=== PATIENT | male | born 1985 ===

== ENCOUNTER 2019-03-01 22:56 | Emergency (ER) | payer OTHER, SELFPAY ==
[2019-03-01 23:00] VITALS: BP 156/96; PULSE 97; RESP 20; TEMP 36.7; O2SAT 96; BMI 24.3
--- NOTE | 2019-03-01 23:20 | ED_ITS ---
HPI - Skin/Abscess/Foreign Bdy General Chief complaint: Skin/Abscess/Foreign Body Stated complaint: thinks a side effect to a medication Time Seen by Provider: 03/01/19 23:11 Source: patient Mode of arrival: ambulatory Limitations: no limitations History of Present Illness HPI narrative: Patient is a 33-year-old male here for evaluation of what he thinks is a reaction to the medication he is taking. He states that several weeks ago he started taking Lamictal. This is provided by his mental health provider. He states that he has been increasing the dose of this over the past several weeks. He states that on Saturday of last week he started noticed some redness on his penis. He states that since then this has worsened. He states that he has had some problems with urinating since then because the urethral opening has been ?closing off? he states that he is able to urinate after he ?opens it ?he also has a spot on his upper lip that started about the same time. He stated he stopped taking the Lamictal on of last week. Upon further questioning he stated that at the end of last year he had very similar symptoms happened after he started Lamictal. He stated that he stop taking it at that time because he ran out of the medication. He states that the rash that he had in his genitals at that time resolved after about 3 weeks. He states that the rash this time is worse than the prior episodes. No fevers. No history of sexually transmitted diseases. He is not concerned about sexually transmitted diseases. Has been using Vaseline over his lesions on his penis. Related Data Previous Rx's Medication Instructions Recorded ciprofloxacin HCl [Cipro] 500 mg PO BID #14 tab 09/07/17 hydrocodone-acetaminophen [[place]] 1 tab PO Q6HP PRN #8 tab 09/07/17 sulfamethoxazole-trimethoprim 1 tab PO BID #10 tab 09/07/17 Allergies Allergy/AdvReac Type Severity Reaction Status Date / Time morphine Allergy Severe SOB, Verified 03/01/19 23:12 ITCHING acetaminophen [From Vicodin] Allergy Mild MAKES HIM Verified 03/01/19 23:12 ITCH hydrocodone [From Vicodin] Allergy Mild MAKES HIM Verified 03/01/19 23:12 ITCH codeine Allergy Verified 03/01/19 23:13 oxycodone [From Percocet] Allergy Verified 03/01/19 23:13 Review of Systems Constitutional Denies fatigue and Denies fever(s) Eyes Denies itchy eyes ENT Ears, Nose, Mouth, and Throat: Denies lip swelling and Denies throat swelling Cardiovascular Denies chest pain and Denies dyspnea Respiratory Denies dyspnea Gastrointestinal Gastrointestinal: Denies abdominal pain Genitourinary Comments: Rash around his penis Musculoskeletal Denies back pain and Denies arthralgias Integumentary/Breasts Comments: Rash and ulcerations on his penis and upper lip Neurologic Denies behavioral changes Psychiatric Denies behavioral changes Endocrine Denies fatigue Hematologic/Lymphatic Denies easy bleeding and Denies easy bruising Allergic/Immunologic Denies urticaria, Denies itchy eyes, Denies lip swelling and Denies throat swelling [facility] Medical History Depression (Acute) Social History Smoking Status: Former smoker Social History Smoking Status: Former smoker Exam Initial Vital Signs Initial Vital Signs: Vital Signs Temperature 98.1 F 03/01/19 23:00 Pulse Rate 97 H 03/01/19 23:00 Respiratory Rate 20 03/01/19 23:00 Blood Pressure 156/96 H 03/01/19 23:00 Pulse Oximetry 96 03/01/19 23:00 Const General: cooperative, well developed, well groomed and No acute distress Orientation: alert, awake and oriented x3 HENMT Head: normal to inspection and normocephalic Resp Effort & Inspection: normal respiratory effort Auscultation: clear to auscultation bilaterally Cardio Rate: regular rate Rhythm: regular rhythm GI Inspection: non-distended Palpation: soft External: circumcised Scrotum: scrotum normal Testes: normal Skin Other: Patient with a 1 cm area of crusting on the right side of his upper lip. No surrounding erythema. No vesicles apparent. Patient with significant excoriation and ulceration to his penis. Minimal involvement of the scrotum. Does have brawl skin tissue around the glans of the penis. There are no vesicles apparent. There is no signs of an infection. Did seem to be tender to palpation. no drainage. no crusting. Neuro General: alert, awake and oriented x3 Extrem General: normal to inspection and capillary refill normal Psych Appearance: grossly normal and well kempt Course Vital Signs - 8 hr 03/01/19 23:00 03/02/19 00:34 Temperature 98.1 F 98.2 F Pulse Rate 97 H 77 Respiratory Rate 20 16 Blood Pressure 156/96 H 146/91 H Pulse Oximetry 96 98 MDM - Skin/Abscess/Foreign Bdy MDM Narrative Medical decision making narrative: Patient is otherwise healthy however has fairly significant ulcerations and excoriations sores to his penis. He also has a small area on his upper lip. There seems to be no other mucous membrane involvement. It appears that the same symptoms happened at the end of last year when he took the Lamictal and improved after he stopped the Lamictal. I suspect that this is a reaction to Lamictal. He has not been on it for the past couple days and I instructed him to stop taking it and contact his mental health provider regarding this. There is no signs of a superinfection over the area. The rash is not consistent with herpes or syphilis or chancroid. 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 He is still able to urinate. We did discuss a Humphrey catheter however since he is able to urinate I feel that the risks of infections outweigh the benefits currently. Referral was placed for wound care. Patient was given follow-up numbers with regard to Urology. He is also instructed to contact his primary care provider over the [place] for follow-up. He was given strict return precautions. No indication for antibiotics currently. The patient expressed understanding and agreement this plan. Discharge Plan Departure Patient Disposition: Home Clinical Impression: Rash Medication reaction Qualifiers: Encounter type: initial encounter Qualified Code(s): T50.905A - Adverse effect of unspecified drugs, medicaments and biological substances, initial encounter Discharge Date/Time: 03/02/19 00:34 Interventions: ED Discharge Assessment Last Done: 03/02/19 00:34 Instructions: DI for Rash, Skin Wound Activity Restrictions/Additional Instructions: I recommend that you stop taking the Lamictal. It is also important that if he finds the ulcerations are worsening or if you find ulcerations and other areas including your mouth or if your pain is worsening or he develop any fevers or problems urinating that you return to the emergency department. Please contact the wound Care Clinic at Located within [facility] at [phone] for follow-up. I also [facility] He can also contact the [facility] Urology Department at [phone]. I would also contact your mental health provider. Prescriptions: No Action hydrocodone-acetaminophen [[place]] 5 MG/325 MG tablet 1 tab PO Q6HP PRNQty: 8 RF: 0 ciprofloxacin HCl [Cipro] 500 MG tablet 500 mg PO BID Qty: 14 RF: 0 sulfamethoxazole-trimethoprim 800 MG/160 MG tablet 1 tab PO BID Qty: 10 RF: 0 Stand Alone Forms: School Release Note
[2019-03-02 00:34] VITALS: BP 146/91; PULSE 77; RESP 16; TEMP 36.8; O2SAT 98
== END 2019-03-02 00:34 | disposition home or self-care (01) ==
PROVIDERS: Emergency Provider Emergency Medicine
DX: T50.905A Adverse effect of unspecified drugs, medicaments and biological substances, initial encounter (principal); R21 Rash and other nonspecific skin eruption
CPT/HCPCS: 99282

== ENCOUNTER 2023-04-22 10:28 | Day surgery (SDC) | payer OTHER, SELFPAY ==
[2023-04-22 10:46] VITALS: BP 142/89; PULSE 86; RESP 16; TEMP 36.6; O2SAT 100; BMI 24.5
[2023-04-22] MEDS: LACTATED RINGERS 1,000 ML 21 ML IV (10:56)
--- NOTE | 2023-04-22 11:33 | PM.PREOP ---
Pre-operative Note COVID-19 Criteria for continued procedure: Expected advancement of disease process, Continuing or worsening of significant or severe pain, Deterioration of the patient's condition or overall health, Delay expected to result in less-positive ultimate med/surg outcome and Non-surgical alternatives not available or appropriate per current SOC Interval Note History & Physical reviewed/Exam performed by Physician: Yes Changes to H&P: No
[2023-04-22] MEDS: CEFAZOLIN 2 GM/100 ML PREMIX 100 ML IV (12:13)
--- NOTE | 2023-04-22 12:16 | SUR.OPER ---
Supine on padded OR bed, head on pillow, arms secured on padded arm boards at <90 degrees abduction, legs uncrossed, safety belt at thigh, tape over blanket over lower legs.
[2023-04-22] MEDS: BUPIVACAINE LIPOSOME 266 MG/20 ML VIAL INJ (12:20)
[2023-04-22] MEDS: BACITRACIN OINT 0.9 GM PCKT 1 APPLIC TOP (12:21)
[2023-04-22 12:50] VITALS: BP 113/69; PULSE 69; RESP 20; TEMP 36.5; O2SAT 100
--- NOTE | 2023-04-22 12:53 | SUR.PHASEI ---
Received to PACU after MAC. Oral airway in place. No further airway assistance required. Report from Nayely Jones RN and SHRADDHA Nunez.
[2023-04-22 12:55] VITALS: BP 119/73; PULSE 72; RESP 12; O2SAT 100
[2023-04-22 13:05] VITALS: BP 121/85; BP 122/77; PULSE 71; PULSE 72; RESP 10; RESP 14; TEMP 36.2; O2SAT 98; O2SAT 99
--- NOTE | 2023-04-22 13:08 | PM.OP.1 ---
Operative Date/Time/Diagnoses Date of procedure: 04/22/23 Time of procedure: 12:45 Pre-op diagnosis: Right sperm granuloma. Post-op diagnosis: other (Proximity of vas stump superficially to skin) Procedure & Clinicians Procedure: 1. Right scrotal exploration and repositioning of vasectomy interruption stumps. Same procedure as scheduled: No (No granuloma found.) Indications: 1. Painful right scrotal contents status post vasectomy. Surgeon: Suzy Vora Click Yes if Unassisted: Yes Anesthesia Type: General Operative Notes Findings: The vas stumps were in close proximity and attached just beneath the surface of the skin to the right of the original vas incision. No granuloma was identified. Closure Type: primary Specimen(s): none sent Estimated Blood Loss (mL): 1 Procedure in detail: The patient was positioned supine was administered general anesthesia. The lower abdomen, genitalia, and groin were then prepped and draped in sterile fashion. 1.33% Exparel was then used to infiltrate midline scrotal raphae and subcutaneous tissue. A 1-1.5 cm midline incision was then made with a pinpoint cautery tip Bovie. Combination of blunt and cautery dissection were then utilized to identify, isolate, and mobilize the site of vasectomy. Appropriate plane was obtain circumferentially around the vas stumps and careful dissection was extended proximally with the proximal stump side and distally on the distal stump side. The ends were then repositioned in a deeper and more posterior location within the right hemiscrotum. The subcutaneous layer was then closed at 2 levels with [id number] 2-0 chromic. The skin was reapproximated with a running horizontal mattress of 4-0 Monocryl. Skin surface was then cleaned and dried. Antibiotic ointment was applied to the incision. Fluffs were applied to the scrotum athletic supporter was fitted to the patient. The patient was then awakened, transferred to [facility], and then transported recovery in stable condition. Complications: none Post-operative Condition: stable Disposition: PACU Plan for aftercare: Discharge home.
== END 2023-04-22 13:23 | disposition home or self-care (01) ==
PROVIDERS: PCP Family Medicine; Referring Provider Specialist; Visit Provider Specialist
PROC: (CPT 55110; principal; 2023-04-22 11:45)
DX: N50.89 Other specified disorders of the male genital organs (principal); N50.82 Scrotal pain
CPT/HCPCS: 55110; C9290; J0690; J2250; J2704; J3010

== ENCOUNTER 2023-04-26 11:33 | Emergency (ER) | payer OTHER, SELFPAY ==
[2023-04-26 11:37] VITALS: BP 143/90; PULSE 89; RESP 18; TEMP 36.7; O2SAT 98; BMI 24.5
[2023-04-26 13:32] VITALS: BP 144/90; PULSE 77; RESP 18; O2SAT 97
--- NOTE | 2023-04-26 13:41 | ED.WOUNDLAC ---
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 Patient states he had a vasectomy at the beginning of the month and then developed patient had concern for granuloma but was found to have proximity of the vas deferens stump superficially to the skin. Patient states this was on 04/22/2023, since then he would noticed some blackish discoloration of the incision he states sutures were supposed to be absorbable and he was supposed to follow up in 2-3 weeks. He has not had fevers he is had pain at the site, testicular pain. He states pain has been present persisting since the surgery but not significantly worsened maybe a little bit improved. He is not appreciate a lot of new swelling, redness or other skin changes. He did snip 1 of the sutures himself. Patient states no issues with urination, no dysuria, urgency or frequency. No new abdominal back or flank pain. He states he is chronic back pain but no new changes. Patient has a attempted to reach Dr. Vora his urologist yesterday and today without any success. He does note he has been less active in the last week since his surgery. Patient knows multiple medication allergies. Tobacco, occasional alcohol, uses marijuana but no other illicit. Related Data Home Medications Medication Instructions Recorded Confirmed cholecalciferol (vitamin D3) 25 2,000 unit PO DAILY 10/24/21 04/22/23 mcg (1,000 unit) tablet montelukast 10 mg tablet 10 mg PO DAILY 10/24/21 04/22/23 gabapentin 300 mg capsule 300 mg PO TID 03/05/23 04/22/23 Previous Rx's Medication Instructions Recorded fluticasone propionate 50 1 spray intranasal DAILY #16 grams 10/24/21 mcg/actuation nasal spray,suspension rizatriptan 10 mg disintegrating 10 mg PO ONCE PRN migraine 03/21/22 tablet (Maxalt-COREMAKING MACHINE OPERATOR) headache #20 tabs methocarbamol 500 mg tablet 500 mg PO TID #30 tabs 12/12/22 bupropion HCl 300 mg 24 hr tablet, 300 mg PO QAM #90 tabs 01/09/23 extended release dextroamphetamine-amphetamine ER 30 mg PO DAILY #30 caps 04/05/23 30 mg 24hr capsule,extend release tramadol 50 mg tablet 50 mg PO Q4H PRN pain #20 tabs 04/22/23 doxycycline hyclate 100 mg tablet 100 mg PO BID #20 tabs 04/26/23 Allergies Allergy/AdvReac Type Severity Reaction Status Date / Time hazelnut Allergy Severe Throat Verified 04/22/23 12:42 swelling lamotrigine [From Lamictal] Allergy Severe SJS Verified 04/22/23 12:42 morphine Allergy Severe SOB, Verified 04/22/23 12:42 ITCHING hydrocodone [From Vicodin] Allergy Mild MAKES HIM Verified 04/22/23 12:42 ITCH lithium Allergy Mild Itching Verified 04/22/23 12:42 acetaminophen Allergy Rash Verified 04/26/23 11:42 aspirin Allergy Rash Verified 04/22/23 12:42 codeine Allergy Verified 04/22/23 12:42 ibuprofen Allergy Rash Verified 04/22/23 12:42 naproxen Allergy Rash Verified 04/22/23 12:42 oxycodone [From Percocet] Allergy Verified 04/22/23 12:42 Review of Systems Review of Systems ROS Unobtainable: All systems reviewed & are unremarkable except as noted in HPI and below Patient History Medical History ADD (attention deficit disorder) (~1993) Allergies (~1984) Arthritis Asthma (~2006) Chicken pox (~1987) Chronic back pain (~2006) Depression Depression (~2005) Eczema (~2007) Encounter for sterilization Fractures (~1996) Hearing loss Hypertension (~2006) Migraine headache (~2014) Psoriasis (~1986) PTSD (post-traumatic stress disorder) (~2005) Recurrent sinusitis Shoulder pain (~2003) Sperm granuloma Sterilization consult Tinnitus Surgical History Anesthesia H/O vasectomy (04/04/23) History of foot surgery (~2008) History of tonsillectomy and adenoidectomy (~1994) Family History Father Renal cancer Mental health problem History of heart disease Cancer Mother Diabetes mellitus Mental health problem Neuropathy Sister Ovarian cancer Mental health problem Migraine Cancer Grandfather Diabetes mellitus History of heart disease Cancer Grandmother Diabetes mellitus Neuropathy Grandfather Cancer Grandmother Dementia Eczema Social History marital status: number of children: 0 household members: spouse Smoking Status: Never smoker Tobacco: How many years used: 5 alcohol intake: current substance use type: marijuana (2g per week for sleep ) Type(s) of exercise: walking frequency: 3-4 times per week Smoking Status: Never smoker alcohol intake frequency: holidays/special occasions only Substance Use Type: marijuana Exam Narrative Exam Narrative: GENERAL: Alert and oriented x three, male in mild distress. HEENT: Head normocephalic, atraumatic, EOMI, pupils reactive, face symmetric, moist mucous membranes NECK: Supple, full range of motion CARDIOVASCULAR: Regular rate and rhythm without murmurs, rubs or gallops. RESPIRATORY: Breath sounds equal bilaterally, no wheezes rales or rhonchi. ABDOMEN: Soft, nontender. Normoactive bowel sounds all 4 quadrants. No guarding or rebound, rigidity, no mass : No CVA tenderness. Male: normal external examination except on the anterior scrotum approximately midline patient has appears to be healing incision there is purplish discoloration and fullness consistent with possible keloid or scarring, there is some additional fullness just adjacent to the left over the top of the testicle. Mildly tender. No foul odor, no drainage, patient is only mildly tender. I do not appreciate any other swelling, redness or skin changes. Testicles themselves are nontender. Penis is nontender without any other skin changes., no penile discharge or lesions, testicles non-tender, cremasteric reflex intact, no inguinal hernias noted. EXTREMITIES: Normal range of motion, no clubbing or edema. Neurovascularly intact NEUROLOGICAL: Cranial nerves II through XII grossly intact. Moving all extremities SKIN: Warm, dry, no petechiae, no rashes or lesions otherwise noted. Initial Vital Signs Initial Vital Signs: Vital Signs Temperature 98.1 F 04/26/23 11:37 Pulse Rate 89 04/26/23 11:37 Respiratory Rate 18 04/26/23 11:37 Blood Pressure 143/90 H 04/26/23 11:37 Pulse Oximetry 98 04/26/23 11:37 Oxygen Delivery Method Room Air 04/26/23 11:37 Course Orders Ordered: ED Orders 04/26/23 13:50 US scrotum Stat 04/26/23 13:56 UA Complete [Urinalysis and Microscopic] Stat Vital Signs Vital signs: Vital Signs - 8 hr 04/26/23 11:37 04/26/23 13:32 04/26/23 15:52 Temperature 98.1 F Pulse Rate 89 77 76 Respiratory Rate 18 18 18 Blood Pressure 143/90 H 144/90 H 139/79 Pulse Oximetry 98 97 96 Oxygen Delivery Method Room Air Room Air Room Air MDM - Wound/Laceration Lab Data Labs: Lab Results 04/26/23 Range/Units 13:56 Urine Color Yellow Urine Appearance Sl cloudy Urine pH 8.0 (4.5-8.0) Ur Specific [place] 1.020 (1.000-1.035) Urine Protein Negative (Negative) Urine Glucose (UA) Negative (Negative) g/dL Urine Ketones Negative (NEGATIVE) Urine Occult Blood Negative (Negative) Urine Nitrate Negative (Negative) Urine Bilirubin Negative (NEGATIVE) Urine Urobilinogen 0.2 (0.2) E.U./dL Ur Leukocyte Esterase Negative (NEGATIVE) Urine RBC None seen (0-5/HPF) Urine WBC 0-1/hpf (0-5/HPF) Ur Squamous Epith Cells None seen (0-5/HPF) Amorphous Sediment 4+ Urine Bacteria Few (2-10) H (None) Ur Culture Indicated? Cult not indicated Imaging Data scrotum US: Radiologist's Impression: Close Scrotum Ultrasound (Signed) Taylor Turner - 04/26/23 Launch?[place] [address] Ultrasound Report Signed Patient: Daljit Fitzgerald MR#: [id number] : 1985 Acct:[id number] Age/Sex: 38 / M Date of Service: 04/26/23 Loc: ED Accession Number: [id number] ?? Procedure: US scrotum Ordering Provider: Andree Marie D.O. PROCEDURE:? US SCROTUM ? INDICATIONS:? VASECTOMY, PAIN AND SWELLING ? TECHNIQUE:? Real-time scanning was performed of the scrotum and testicles, with image documentation.? Color and pulse Doppler interrogation was performed of both testicles.? ? COMPARISON:? None. ? FINDINGS:? ? Right:? Testicle is normal in size at 3.4 x 2.1 x 3.1 cm, and homogenous in echotexture.? Epididymis is normal in overall size and morphology.? Hydrocele without varicoceles.? Overlying scrotal skin is normal in thickness.? ? Left:? Testicle is normal in size at 4.1 x 2.4 x 2.7 cm, and homogeneous in echotexture.? Epididymis is normal in overall size and morphology.? There is a focus of isoechoic [place] adjacent to the epididymis measuring approximately 8 mm.? Hydrocele without varicoceles.? Overlying scrotal skin is normal in thickness.? ? Doppler:? Color and pulse Doppler demonstrate normal and symmetric arterial flow in both testicles.? ? IMPRESSION:? ? No torsion at time of exam.? Intermittent torsion cannot be excluded. ? Focus of echogenicity adjacent to the epididymis possibly epididymal appendix. ? ? Dictated by: Taylor Turner M.D. on 04/26/2023 at 15:15 ? ? Approved by: Taylor Turner M.D. on 04/26/2023 at 15:16?? [facility] Narrative Medical decision making narrative: This is a 38-year-old male who presents to the emergency department with concern for necrosis or changes to the skin after surgery. Patient had a vasectomy states he was taken back because he was having persistent pain and was found to have an area where the vas deferens had sort of stuck to the skin. Patient noticed that the scarring is sort of a large bump and turned very dark black/purple. Patient states he is had persistent pain not increasing no fevers no other swelling or changes. Patient states he has had decreased activity. He tried to call his urologist yesterday and today without any luck had presents for evaluation. On examination patient appears to have some ecchymosis, incisions not dehiscing it is intact, only very mildly painful. Is more of a deep purple and I suspect this is more hematoma than actual necrosis. Does not appear infected otherwise. Ultrasound shows possible epididymal appendix although dependent this may been be area that patient has noted. Did attempt to reach his Urology team, call out to Dr. Vora. Office states he is not available nor is partner today. They are both out of office. Discussed with patient will start oral antibiotic was short term follow up on Saturday and strict return precautions through the weekend. Discharge Plan Departure Patient Disposition: Home Clinical Impression: Problem involving surgical incision Instructions: DI for Wound Infection Activity Restrictions/Additional Instructions: Follow-up with Dr. Vora first thing this upcoming week. Wound Care: Keep wound(s) clean and dry. Wash daily with soap and water only. Do not poke or insert needles into the scrotal area. Please take antibiotic until completed, start this today. Prescription printed. Please return for fevers, increasing redness, swelling, discoloration, increasing pain in the testicles, scrotum or perineal area, difficulty or painful urination or other new or concerning changes Prescriptions: New doxycycline hyclate 100 mg tablet 100 mg PO BID Qty: 20 0RF No Action methocarbamol 500 mg tablet 500 mg PO TID Qty: 30 2RF Rx Instructions: Use as needed as needed for back strain bupropion HCl 300 mg tablet extended release 24 hr 300 mg PO QAM Qty: 90 1RF Rx Instructions: Please call to schedule appointment with PCP in February or March prior to additional refills dextroamphetamine-amphetamine 30 mg capsule,extended release 24hr 30 mg PO DAILY Qty: 30 0RF rizatriptan [Maxalt-COREMAKING MACHINE OPERATOR] 10 mg tablet,disintegrating 10 mg PO ONCE PRN (Reason: migraine headache) Qty: 20 3RF Rx Instructions: may repeat once after at least 2 hours montelukast 10 mg tablet 10 mg PO DAILY cholecalciferol (vitamin D3) 25 mcg (1,000 unit) tablet 2,000 unit PO DAILY fluticasone propionate 50 mcg/actuation spray,suspension 1 spray intranasal DAILY Qty: 16 2RF tramadol 50 mg tablet 50 mg PO Q4H PRN (Reason: pain) Qty: 20 0RF gabapentin 300 mg capsule 300 mg PO TID Referrals: Suzy Vora MD [Physician] - Donald Luna DO [Primary Care Provider] - Stand Alone Forms: Patient Portal/API
--- NOTE | 2023-04-26 13:50 | DI.US.S_ITS ---
PROCEDURE: US SCROTUM INDICATIONS: VASECTOMY, PAIN AND SWELLING TECHNIQUE: Real-time scanning was performed of the scrotum and testicles, with image documentation. Color and pulse Doppler interrogation was performed of both testicles. COMPARISON: None. FINDINGS: Right: Testicle is normal in size at 3.4 x 2.1 x 3.1 cm, and homogenous in echotexture. Epididymis is normal in overall size and morphology. Hydrocele without varicoceles. Overlying scrotal skin is normal in thickness. Left: Testicle is normal in size at 4.1 x 2.4 x 2.7 cm, and homogeneous in echotexture. Epididymis is normal in overall size and morphology. There is a focus of isoechoic [place] adjacent to the epididymis measuring approximately 8 mm. Hydrocele without varicoceles. Overlying scrotal skin is normal in thickness. Doppler: Color and pulse Doppler demonstrate normal and symmetric arterial flow in both testicles. IMPRESSION: No torsion at time of exam. Intermittent torsion cannot be excluded. Focus of echogenicity adjacent to the epididymis possibly epididymal appendix. Dictated by: Taylor Turner M.D. on 04/26/2023 at 15:15 Approved by: Taylor Turner M.D. on 04/26/2023 at 15:16
[2023-04-26 14:16] LABS: Appearance Urine UA SL CLOUDY; Bilirubin Urine UA NEGATIVE (NEGATIVE); Color Urine UA YELLOW; Glucose Urine UA NEGATIVE (Negative); Ketones Urine UA NEGATIVE (NEGATIVE); Leukocyte Esterase Urine UA NEGATIVE (NEGATIVE); Nitrite Urine UA NEGATIVE (Negative); Occult Blood Urine UA NEGATIVE (Negative); Protein Urine UA NEGATIVE (Negative); Urobilinogen Urine UA 0.2 E.U./dL (0.2)
[2023-04-26 14:38] LABS: Amorphous Sediment Urine 4+; Bacteria Urine Few (2-10); Culture Indicated Urine Cult Not Indicated; RBC Urine None Seen (0-5/HPF); Squamous Epithelial Cell Urine None Seen (0-5/HPF); WBC Urine 0-1/HPF (0-5/HPF)
[2023-04-26 15:52] VITALS: BP 139/79; PULSE 76; RESP 18; O2SAT 96
== END 2023-04-26 15:52 | disposition home or self-care (01) ==
PROVIDERS: Emergency Provider Emergency Medicine; PCP Family Medicine
DX: T81.89XA Other complications of procedures, not elsewhere classified, initial encounter (principal)
CPT/HCPCS: 76870; 81001; 99283

== ENCOUNTER → 2025-03-04 11:42 | Outpatient (CLI) | payer OTHER, SELFPAY ==
[2025-03-04 12:26] LABS: Add Manual Diff / Slide Review NO; Basophils Absolute Auto 0 /uL (0-100); Basophils Percent Auto 0.7 % (0-2); Eosinophils Absolute Auto 200 /uL (0-450); Eosinophils Percent Auto 2.3 % (2-4); Hematocrit 46.4 % (41-53); Hemoglobin 15.9 g/dL (13.5-17.5); Lymphocytes Absolute Auto 2200 /uL (1100-4500); Mean Corpuscular HGB Conc 34.4 % (30-36); Mean Corpuscular Hemoglobin 27.3 PG (26-34); Mean Corpuscular Volume 79.4 fL (80-100); Monocytes Absolute Auto 400 /uL (0-900); Monocytes Percent Auto 6.2 % (3-14); Neutrophils Absolute Auto 3900 /uL (1500-7000); Neutrophils Percent Auto 57.8 % (50-75); Platelet Count 308 X10^3/uL (150-400); Red Blood Cell Count 5.84 X10^6/uL (4.5-5.9); Red Cell Distribution Width 14.3 % (11.6-14.8); White Blood Cell Count 6.7 X10^3/uL (4.5-11.0)
[2025-03-04 12:57] LABS: Alanine Aminotransferase 42 IU/L (<50); Albumin 4.7 g/dL (3.5-5.0); Albumin Globulin Ratio 1.6 (1.0-2.8); Alkaline Phosphatase 79 U/L (38-126); Aspartate Aminotransferase 31 IU/L (17-59); BUN Creatinine Ratio 19.4 (6-22); Bilirubin Total 1.4 mg/dL (0.2-1.3); Blood Urea Nitrogen 18 mg/dL (9-20); Calcium 10.3 mg/dL (8.4-10.2); Carbon Dioxide 28 mmol/L (22-32); Chloride 103 mmol/L (98-107); Estimated Glomerular Filt Rate > 60 mL/min (>60); Globulin 2.9 g/dL (1.7-4.1); Glucose 98 mg/dL (70-99); HEMOLYSIS < 15 (0-50); Potassium 4.6 mmol/L (3.4-5.1); Sodium 141 mmol/L (137-145); Total Protein 7.6 g/dL (6.3-8.2)
[2025-03-04 12:58] LABS: Hemoglobin A1C% w Est Avg Glu 5.2 % (4.0-6.0)
[2025-03-04 13:27] LABS: TSH w/ Reflex to FT4 1.39 uIU/mL (0.47-4.68)
== END ==
LOC: LAB 11:42
PROVIDERS: PCP Family Medicine; Referring Provider Family Medicine; Visit Provider Family Medicine
DX: I10 Essential (primary) hypertension (principal); R53.83 Other fatigue; M79.10 Myalgia, unspecified site; Z91.89 Other specified personal risk factors, not elsewhere classified
CPT/HCPCS: 36415; 80053; 83036; 84443; 85025; 86617